=== PATIENT | female | born 1960 | race Hispanic/Latino ===

== ENCOUNTER 2017-04-01 13:38 | Inpatient (IN) | payer OTHER ==
[~2017-04-01] VITALS: Ht 152.4 cm; Wt 79.3 kg
[2017-04-01] VITALS (15 sets, daily range): BP systolic 111–177; BP diastolic 68–90; PULSE 76–99; RESP 16–22; O2SAT 93–98
[~2017-04-01 13:38] MED LIST: ALBU6.7H INH; AMLO10TA3 PO; DICY20TA33 PO; FLUT16SP NS; GLBR5T PO; HYDR25TA4 PO; INSU100I13 SUBQ; LOSA100T29 PO; METF-496 PO; MULT1CAP33 PO
[2017-04-01] MEDS ORDERED: Propofol 10,000 mCg/mL 20 mL Inj ONE (14:49)
[2017-04-01] MEDS ORDERED: Ondansetron 2 mg/mL 2 mL Inj ONE (14:49)
[2017-04-01] MEDS ORDERED: fentaNYL-PF 50 mCg/mL 2 mL Inj ONE ×3 (14:49→21:20)
[2017-04-01] MEDS ORDERED: Ketamine 10 mg/mL 20 mL Inj ONE (14:49)
[2017-04-01] MEDS ORDERED: BENZ200C44 PO (14:57)
[2017-04-01] MEDS ORDERED: ESOM40CA41 PO (14:57)
[2017-04-01] MEDS ORDERED: ALBU8.5H2 INHALATION (14:57)
[2017-04-01] MEDS ORDERED: DOCU250C2 PO (14:57)
[2017-04-01] MEDS ORDERED: DESO15OI TOP (14:57)
[2017-04-01] MEDS ORDERED: ASPI-973 PO (14:57)
[2017-04-01] MEDS ORDERED: POLY17PO6 PO (14:57)
[2017-04-01] MEDS ORDERED: Lactated Ringer's 1,000 ML IV ONE ×2 (16:23→17:49)
[2017-04-01] MEDS ORDERED: MetoCLOpramide 5 mg/mL 2 mL Inj IVPUSH PRN ×2 (17:10→20:25)
--- NOTE | 2017-04-01 17:49 | PCM.HPANE ---
Patient Data Surgeon Admitting Provider:Brandyn Hodge MD Attending Provider:Brandyn Hodge MD Primary Care Physician:Ann Chen MD Other Provider:Padmini Wilcox Anesthesia Reason for Visit Incarcerated Hernia Ht/WT & BMI Height (Feet): 5 Weight (Kilograms): 74.400 Body Mass Index 32.20 Allergies Coded Allergies: No Known Drug Allergies (Verified Allergy, Unknown, 04/01/17) Past Anesthesia History Anesthesia History: Denies:: Abnormal Airway, Anesthesia Reactions, Difficult Intubation, Fam Anesthesia Reaction, Fam Malignant Hypertherm, Malignant Hyperthermia Diabetes History Hx Diabetes?: Yes Type of Diabetes: Type I Glycemic Control: Insulin Dependent Current Bedside Blood Glucose: 171 MRSA MRSA: No Medications Blood Thinner: Aspirin Hypertension Medication: Yes Home Meds Incl Beta Arlin: No Reported Medications Esomeprazole Magnesium (Nexium)40 Mg Capsule.dr40 Mg PO DAILY Ref 0 04/01/17 Polyethylene Glycol 3350 (Miralax)17 Gm Powd.pack17 Gm PO DAILY 04/01/17 Docusate Sodium 250 Mg Kwdotts538 Mg PO BID PRN For Constipation Ref 0 04/01/17 Desonide (Desonide Ointment)N Oint...g.1 Applic TOP BID #1 TUBE Ref 0 04/01/17 Benzonatate 200 Mg Khvwyls685 Mg PO TID PRN For Cough #20 04/01/17 Aspirin 81 Mg Ggyyrk125 Mg PO DAILY Ref 0 04/01/17 Albuterol HFA (Proair HFA)8.5 Gm Hfa.aer.ad2 Puffs INHALATION Q4-6HR PRN For Shortness of Breath #1 INHALER 04/01/17 Metformin ER 1,000 Mg Tablet1,000 Mg PO BIDWM Ref 0 07/24/16 Hydrochlorothiazide 25 Mg Sjoxxg85 Mg PO DAILY 30 Days Ref 0 07/24/16 Fluticasone Propionate (Fluticasone Propionate Nasal)16 Gm [place].susp2 [place] NS BID #16 GM Ref 0 07/24/16 Multivitamin (Multivitamins)1 Each Capsule1 Each PO DAILY 07/24/16 Insulin Glargine (Lantus U100 Solostar Insulin Pen)100 Unit/1 Ml Insuln.pen20 Unit SUBQ HS #1 PENINJ Ref 0 07/24/16 Glyburide 5 Mg Tab5 Mg PO BID 30 Days Ref 0 07/24/16 Losartan Potassium 100 Mg Frvttn409 Mg PO DAILY 07/24/16 Amlodipine 10 Mg Ekpqlv45 Mg PO DAILY #30 03/20/16 Discontinued Reported Medications Albuterol Sulfate (Proventil HFA Inhaler)6.7 Gm Hfa.aer.ad2 Puff INH Q4 #1 INHALER Ref 0 07/24/16 Discontinued Scripts Dicyclomine (Bentyl)20 Mg Nmvoim05 Mg PO QID #20 TABLET Prov:Dwayne Delgado MD 03/28/16 History History of ENT Problems?: No HEENT History: Denies:: Abnormal Airway Difficult Intubation Dysphagia Hearing Problem Denture Type: None Teeth Condition: Within Normal Limits Hx of Heart Problems?: Yes Cardiovascular History: Positive for:: Edema Hypertension Denies:: AICD Atrial Fibrillation Chest Pain Congestive Heart Failure Pacemaker Valvular Heart Disease Hx of Respiratory Problem?: Yes Respiratory History: Positive for:: Asthma (mild) Dyspnea (exercise induced ) Denies:: COPD Cough Hemoptysis Pneumonia Tuberculosis Hx Neurologic Problems?: No Neurological History: Denies:: CVA Dementia Hx of GI Problems?: Yes Hx of Problems?: No Genitourinary History: Denies:: Kidney Stones Female Hx: Denies:: Currently Hx Musculoskeletal Problems?: No Musculoskeletal History: Denies:: Joint Replacement Hx of Psycho/Social Problems?: No Psycho Social History: Positive for:: Anxiety (AT TIMES) Denies:: Hx Depression Hx Surgeries?: Yes (BOWEL RESECTION 04/2012) Hx Any Other Health Problems?: No Other History: Positive for:: Hospitalization (Diverticulitis ) Denies:: Cancer Thyroid Disease History Blood Transfusions: Positive for:: Accept Blood Products? Denies:: Blood Transfuse Reaction Blood Transfusions Hx Diabetes: YesBedside Blood Glucose: 171 Hx Alcohol Use: Yes ("Occasionally")Hx Substance Use: No Smoking Status: Never Smoker Have You Smoked inLast 12 mo: No Stop/Bang Treated for Sleep Apnea?: No Do You Have a CPAP Machine?: No S-Snoring: Do You Snore Loudly: No T-Tired: feel tired, fatigued: No O-Obsered: Observed not breath: No P-Blood Pressure: treated: Yes B- Body Mass Index > 35 kg/m2: No A- Age over 50: Yes N- Neck Large Circumference: No G- Gender Male: No GET Total Score: 1 GET Risk Assessment: Low Risk, <3 Yes Risk Assessment Category Category 1A: Patient has history of documented sleep apnea, and HAS NOT received any narcotic, sedative or anesthesia administration during this stay. Category 1B: Patient has history of documented sleep apnea, and HAS received any narcotic , sedative or anesthesia administration during this stay Category 2: Patient has SUSPECTED Obstructive Sleep Apnea, and HAS received any narcotic , sedative or anesthesia administration during this stay. Category 3: Patient has SUSPECTED Obstructive Sleep Apnea and HAS NOT received narcotic, sedative or anesthesia administration during this stay. Category 4: Outpatient in Procedural Areas with known sleep apnea or who screen positive for High Risk via the STOP/BANG questionnaire. Exam Exam Vital Signs Vital Signs Date Time Temp Pulse Resp B/P Pulse Ox O2 Delivery O2 Flow Rate FiO2 04/01/17 15:57 36.7 99 20 119/82 98 Room Air General Appearance: Alert, Oriented X3, Cooperative HEENT/AIRWAY: MP 2 Lungs: Clear to Auscultation, Normal Air Movement Heart: Exam Unremarkable, Regular Rate/Rhythm, No Murmurs/Rubs/Gallops Meds/Labs/Diagnostics Bedside Blood Glucose: 171 Plan Impression Patient chart reviewed, patient interviewed and anesthestic plan with risks, benefits, and alternatives discussed, and informed consent obtained. ASA Physical Status: ASA2 Mod Systemic Disease Anesthetic Plan: GA Bene/Risks/Altern/Consents: Yes HP Complete Prior to Induction: Yes Willi Umaña MD April 01, 2017 17:49
[2017-04-01] MEDS: HYDROmorphone 1 mg/mL Inj IVPUSH PRN ×8 (17:53→22:51)
[2017-04-01] MEDS ORDERED: Bupivacaine Liposome 1.3% 20 mL Inj ONE (19:27)
[2017-04-01] MEDS ORDERED: Acetaminophen IV 1,000 MG in IV Premix 1 EACH IV PRN (20:05)
[2017-04-01] MEDS ORDERED: Glucose 40% Oral Gel 15 Gm Tube PO PRN (20:05)
[2017-04-01] MEDS ORDERED: Albuterol HFA 60 Puff 8 Gm Inhaler INHALATION PRN (20:10)
--- NOTE | 2017-04-01 20:17 | PCM.SURGOP ---
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 She has had a known incisional hernia for some time, and then presented to urgent care today with acute onset of severe pain in the superior incisional hernia, associated with nausea and vomiting. She had a CT scan of the abdomen and pelvis which showed multiple incisional hernias, but the superior hernia had a portion of the transverse colon with some fat stranding and fluid in the hernia sac, consistent with acute incarceration. After discussion of risks and benefits, she agreed to proceed with laparotomy with repair of incarcerated incisional hernia. Findings: She had 2 primary incisional hernias, as described on the CT scan. The inferior hernia had a portion of small bowel, not incarcerated. The superior hernia was an incarcerated Chery's hernia involving a portion of the transverse colon. She had dense scar tissue, and multiple adhesions of small bowel loops to the anterior abdominal wall. Procedure Details After smooth induction of general endotracheal anesthesia, she was placed in the supine position with both arms out, and was prepped and draped in wide sterile fashion. A procedural pause was performed according to the SCOAP checklist, and all were found to be in agreement. Her previous midline laparotomy was opened from the superior portion down to the umbilicus. Dissection was carried down through the subcutaneous tissue with electrocautery, in between the known hernias. The abdomen was entered at the level of the umbilicus by entering the hernia sac after the umbilical hernia was reduced. The abdomen was entered safely without making an enterotomy. There were multiple dense adhesions of small bowel loops to the anterior abdominal wall, and adhesions were taken down with Metzenbaum scissors. Once this was done, by palpating through the main fascial opening, I was able to enter through the superior fascial defect above the portion of incarcerated transverse colon. Fairly tedious dissection ensued, ultimately enabling me to safely dissect off the transverse colon out of the superior hernia without making an enterotomy. Once this was done, the small fascial bridge was divided inferiorly until there was one fascial defect. Additional adhesio lysis was performed, taking down small bowel adhesions to the anterior abdominal wall until the entire anterior abdominal wall was free. There were some filmy residual intraloop adhesions, which did not look obstructive. The fascia was then skeletonized on both sides. The fascia was closed primarily using a combination of looped 0 PDS suture 2, and #1 Prolene sutures in a [id number]-tcapj. A 19 Georgian round STEFFANY drain was brought out on the left side below the umbilicus, and positioned in the subcutaneous space. Liposomal bupivacaine was instilled into the fascia, and the subcutaneous tissue. The subcutaneous tissue was closed with interrupted 3-0 Vicryl sutures. The skin incision was closed with a running 4-0 Monocryl subcuticular stitch. Steri- Strips, sterile dressings, and an abdominal binder was applied. At the end of the case all needle and sponge counts were correct 2. The patient was awakened from anesthesia without difficulty, and taken to the recovery room in satisfactory condition, having tolerated the procedure well. Complications There were no periprocedural complications identified. Surgical Specimen Removed: No Specimen sent to Pathology: Not applicable Anesthetic Plan: GA Grafts, Implants: None Output, Estimated Blood Loss: 50 Blood Administration during canales: No Drains: STEFFANY Drain #1 Catheters: None copies to: Ann Chen MD, Joshua D MD April 01, 2017 20:17
[2017-04-01] MEDS ORDERED: Lactated Ringer's 500 ML IV PRN (20:23)
[2017-04-01] MEDS ORDERED: Lactated Ringer's 1,000 ML IV SCH (20:23)
[2017-04-01] MEDS ORDERED: EPHEDrine Sulfate 50 mg/mL Inj IVPUSH PRN (20:25)
[2017-04-01] MEDS ORDERED: Ondansetron 2 mg/mL 2 mL Inj IVPUSH PRN (20:25)
[2017-04-01] MEDS ORDERED: Phenylephrine 10,000 mCg/mL Inj IVPUSH PRN (20:25)
[2017-04-01] MEDS ORDERED: Dexamethasone 4 mg/mL Inj IVPUSH PRN (20:25)
[2017-04-01] MEDS ORDERED: Albuterol 2.5 mg/3 mL Inhalation Solution NEB PRN (20:35)
[2017-04-01] MEDS: fentaNYL-PF 50 mCg/mL 2 mL Inj IVPUSH PRN ×4 (20:37→21:29)
[2017-04-01] MEDS: Heparin 5,000 Unit/mL Inj SUBQ SCH (21:00)
[2017-04-01] MEDS ORDERED: Albuterol HFA 200 Puff Inhaler (Vent Pts Only) ONE (21:54)
[2017-04-01] MEDS ORDERED: Insulin LISPRO 300 Unit/3 mL Inj SUBQ SCH (22:00)
[2017-04-01] MEDS: Ondansetron 2 mg/mL 2 mL Inj IVPUSH PRN (22:17)
[2017-04-01] MEDS: HYDROmorphone PCA 0.2 mg/mL 30 mL Inj IV PRN (22:30)
[2017-04-01] MEDS: Dextrose 5% Lactated Ringer's 1,000 ML IV SCH (23:00)
--- NOTE | 2017-04-01 23:08 | HP ---
[address] [address] HISTORY AND PHYSICAL PATIENT: CHRISTA LEAVITT : 1960 MR#: [id number] ADMIT: 04/01/2017 JOB ID: [id number] CHIEF COMPLAINT: Abdominal pain. HISTORY OF PRESENT ILLNESS: The patient is a 57-year-old woman with a personal history of sigmoid colon resection for diverticulitis who has had a known ventral incisional hernia for some time. She presented to urgent care today with fairly acute exacerbation of abdominal pain located at the superior aspect of her upper midline incision. The pain began yesterday. The pain was severe, 8/10, aching, and diffuse. It was radiating to her back. She also had nausea, several episodes of vomiting, alternating diarrhea and constipation. In urgent care, she had a tender hernia in the epigastrium and a reducible hernia at the umbilicus. She had a CT scan of the abdomen and pelvis which showed that the more superior hernia had a moderate amount of inflammation with some reactive free fluid, and changed caliber of the loop of bowel entering and exiting the hernia. The lower periumbilical hernia was described as being unremarkable, although had a loop of small bowel in it as well. White blood cell count was normal at 7.6, hematocrit 41.3. Glucose was 279. She is a diabetic. Her last hemoglobin A1c in December was 11.6. PAST MEDICAL HISTORY: Hypertension, poorly controlled type 2 diabetes mellitus, hyperlipidemia, gastroesophageal reflux disease, asthma, hypermetropia, yeast vaginitis. SURGICAL HISTORY: Sigmoid colon resection in 2011. MEDICATIONS: At home include: 1. Albuterol. 2. Amlodipine. 3. Aspirin 81 mg. 4. Benzonatate. 5. Cozaar. 6. Desonide. 7. Diflucan. 8. Docusate. 9. Fluticasone. 10. Glyburide. 11. Hydrochlorothiazide. 12. Lantus. 13. Losartan. 14. Metformin. 15. MiraLAX. 16. Multivitamin. 17. Nexium. 18. ProAir. ALLERGIES: No known drug allergies. SOCIAL HISTORY: She is a nonsmoker. Denies alcohol and illicit drug use. FAMILY HISTORY: Extensive family history of sigmoid diverticulitis, otherwise negative. REVIEW OF SYSTEMS: A 10-point review of systems is negative for blood in the stool, unplanned weight loss. PHYSICAL EXAMINATION: Body mass index 32.0, temperature 36.7, pulse 99, blood pressure 119/82, saturation 98% on room air. General: She is resting in bed in no acute distress. HEENT: Sclerae anicteric. Mucous membranes are moist. Neck: No lymphadenopathy. Chest: Clear to auscultation bilaterally. Heart: Regular rate and rhythm. No murmurs. Abdomen: Obese, but soft. She is moderately tender in the epigastrium with a firm subcutaneous mass. She has a reducible umbilical hernia. No other masses are appreciated. There is no erythema of the abdominal wall. Extremities: No edema. Neuro: No deficits. Psychiatric: Affect is appropriate. LABORATORIES: As described in the history of present illness. IMAGING: As described in history of present illness. ASSESSMENT AND PLAN: A 57-year-old woman with multiple ventral incisional hernias, with the superior hernia being incarcerated and potentially causing bowel obstruction. Because of the possibility of underlying strangulated hernia, I recommend going to surgery today for a laparotomy with incisional hernia repair. She understands that this may require a bowel resection. Risks of surgery were discussed, including, but not limited to, bleeding, infection, injury to other structures, hernia recurrence. All her questions were answered and informed consent was obtained.
[2017-04-02] VITALS (11 sets, daily range): BP systolic 105–131; BP diastolic 67–81; PULSE 76–87; RESP 14–20; O2SAT 95–99
[2017-04-02] MEDS ORDERED: Insulin LISPRO 300 Unit/3 mL Inj SUBQ ONE (04:10)
[2017-04-02 05:52] LABS: BASOPHILS % (AUTO) 0.2 % (0-3); EOSINOPHILS % (AUTO) 0.1 % (0-5); MONOCYTES % (AUTO) 5.1 % (4-12); Mean Corpuscular Hemoglobin 30.3 pg (27.0-35.0); Mean Corpuscular Volume 87.3 fL (81-100); Platelet Count 137 bil/L (150-400)
[2017-04-02] MEDS: Heparin 5,000 Unit/mL Inj SUBQ SCH ×3 (06:39→21:29)
[2017-04-02] MEDS: Pantoprazole 40 mg ER24 Tablet PO SCH (06:39)
--- NOTE | 2017-04-02 08:17 | PCM.ANEP1 ---
Post Anesthesia Phase 1 PACU Phase 1 Assessment Date of Service: April 01, 2017 Vital Signs Vital Signs Date Time Temp Pulse Resp B/P Pulse Ox O2 Delivery O2 Flow Rate FiO2 04/02/17 05:38 18 96 04/02/17 04:56 14 98 04/02/17 04:25 36.7 80 20 128/74 99 Nasal Cannula 2.00 04/02/17 03:33 Supplement Oxygen 04/02/17 01:19 36.3 81 18 129/76 97 Nasal Cannula 2.00 04/02/17 00:30 18 97 Anesthetic Administered: GA Level of Alertness: Awake, talking Pain: Yes Pain Scale Score: 6 Nausea or Vomiting: No Cardiovascular Function and Hy: Yes Airway Device: Nasal Airway Lungs: Clear to Auscultation, Normal Air Movement Dermatome Level: Full Sensation Complications: No Follow up Care: No Patient Instructions Provided: Yes Willi Umaña MD April 02, 2017 08:17
[2017-04-02] MEDS: Polyethylene Glycol (PEG) 17 Gm Powder PO SCH (08:24)
--- NOTE | 2017-04-02 08:38 | PROG NOTE ---
[address] [address] PROGRESS NOTE PATIENT: CHRISTA LEAVITT : 1960 MR#: [id number] ADMIT: 04/01/2017 JOB ID: [id number] DATE: 04/02/2017 SUBJECTIVE: The patient is seen in followup. She complains of a fair amount of incisional pain this morning. She is not having any nausea. She is urinating without difficulty. OBJECTIVE: Temperature 36.7, pulse 80, blood pressure 128/74, saturation 99% on 2 liters. General: She is sitting up in bed, in no acute distress. Chest is clear. Heart: Regular rate and rhythm. No murmurs. Abdomen is mildly distended, soft. Her incision is intact. STEFFANY drain has bloody output, 15 cc overnight. LABORATORIES: White blood cell count 11.9, hematocrit 37.2, platelets 137. Creatinine 0.58, glucose 342. Albumin 4.3. ASSESSMENT AND PLAN: A 57-year-old woman with poorly controlled diabetes, morbid obesity, postoperative day one status post repair of incarcerated incisional hernia containing colon and small bowel, with lysis of adhesions. She is doing reasonably well. She will stay on a clear liquid diet for today. She has uncontrolled hyperglycemia. We will convert to an insulin infusion today until blood sugars are below 180 for several checks.
[2017-04-02] MEDS: HYDROmorphone PCA 0.2 mg/mL 30 mL Inj IV PRN ×2 (08:41→22:09)
[2017-04-02] MEDS: Dextrose 5% Lactated Ringer's 1,000 ML IV SCH ×3 (08:44→23:06)
[2017-04-02] MEDS: Ondansetron 2 mg/mL 2 mL Inj IVPUSH PRN (09:36)
[2017-04-02] MEDS: Fluticasone 0.05% 15 Spray/2 Gm 16 Gm Nasal Spray NASAL SCH ×2 (11:34→21:30)
[2017-04-02] MEDS: Insulin Human REGular Inj 100 UNIT in 0.9% Sodium Chloride-Pha MIX 100 ML IV SCH (18:51)
[2017-04-03] VITALS (8 sets, daily range): BP systolic 128–163; BP diastolic 62–92; PULSE 66–96; RESP 16–20; O2SAT 92–98
[2017-04-03] MEDS: Dextrose 5% Lactated Ringer's 1,000 ML IV SCH ×2 (04:38→15:13)
[2017-04-03] MEDS: Pantoprazole 40 mg ER24 Tablet PO SCH (05:37)
[2017-04-03] MEDS: Heparin 5,000 Unit/mL Inj SUBQ SCH ×3 (05:37→21:45)
[2017-04-03] MEDS: Ondansetron 2 mg/mL 2 mL Inj IVPUSH PRN (06:09)
[2017-04-03] MEDS ORDERED: Acetaminophen IV 1,000 MG in IV Premix 1 EACH IV PRN (08:10)
--- NOTE | 2017-04-03 08:21 | PROG NOTE ---
[address] [address] PROGRESS NOTE PATIENT: CHRISTA LEAVITT : 1960 MR#: [id number] ADMIT: 04/01/2017 JOB ID: [id number] DATE: 04/03/2017 SUBJECTIVE: The patient is seen in followup. She continues to have some nausea. She has not had any bowel function yet. She has not vomited. She has a fair amount of pain and is a little bit afraid to cough or walk beyond just to the bathroom. OBJECTIVE: Temperature 36.6, pulse 95, blood pressure 153/82, saturation 96% on 2 liters. General: She is resting in bed in no acute distress. Chest is clear. Heart: Regular rate and rhythm. No murmurs. Abdomen is mildly distended. Her incision is clean with no erythema. The STEFFANY drain has serosanguineous drainage, 20 cc overnight. Bowel tones are not appreciated. LABORATORIES: Hemoglobin A1c from yesterday is 11.3. ASSESSMENT AND PLAN: A 57-year-old woman with acutely incarcerated incisional hernia containing transverse colon and small bowel, status post exploratory laparotomy with lysis of adhesions, primary fascial repair. Not unexpectedly, she has some degree of postoperative ileus with no appreciable bowel function yet. She is encouraged to go slow with the diet. Ambulation was encouraged. She should minimize narcotics if at all possible. Recommend continuing the insulin infusion for now.
[2017-04-03] MEDS: Polyethylene Glycol (PEG) 17 Gm Powder PO SCH (09:12)
[2017-04-03] MEDS: Insulin Human REGular Inj 100 UNIT in 0.9% Sodium Chloride-Pha MIX 100 ML IV SCH (09:12)
[2017-04-03] MEDS: Fluticasone 0.05% 15 Spray/2 Gm 16 Gm Nasal Spray NASAL SCH ×2 (09:15→21:45)
[2017-04-04] VITALS (7 sets, daily range): BP systolic 131–149; BP diastolic 76–87; PULSE 75–90; RESP 16–20; O2SAT 93–98
[2017-04-04] MEDS: Dextrose 5% Lactated Ringer's 1,000 ML IV SCH ×3 (00:33→21:11)
[2017-04-04] MEDS: Heparin 5,000 Unit/mL Inj SUBQ SCH ×3 (05:34→21:45)
[2017-04-04 05:55] LABS: BASOPHILS % (AUTO) 0.1 % (0-3); EOSINOPHILS % (AUTO) 2.3 % (0-5); MONOCYTES % (AUTO) 10.9 % (4-12); Mean Corpuscular Hemoglobin 30.7 pg (27.0-35.0); Mean Corpuscular Volume 88.3 fL (81-100); NEUTROPHILS % (AUTO) 61.1 % (40-74); Platelet Count 129 bil/L (150-400)
--- NOTE | 2017-04-04 07:32 | PCM.PNSURG ---
Subjective Visit Information: Reason for Visit Incarcerated Hernia Surgery/Surgery Date Post-Op Day # Date of Admission: April 01, 2017 at 13:44 Hospital Day # Subjective: pt feels better today than yesterday, had some nausea yesterday, no emesis, tolerated clears overnight, no flatus yet. Blood sugar in the low 1-teens on insulin drip Objective Objective Awake in bed Abd: obese, abd binder in place, STEFFANY --> serosang, 10 cc overnight Vital Sign- Last 8 Hours Date Time Temp Pulse Resp B/P Pulse Ox O2 Delivery O2 Flow Rate FiO2 04/04/17 05:50 16 95 04/04/17 05:30 37.4 83 20 149/87 95 Nasal Cannula 2.00 04/04/17 02:49 16 95 04/04/17 00:22 37.6 90 18 143/81 98 Nasal Cannula 2.00 Intake and Output- Last 8 Hour 04/04/17 Cumulative From/Thru 07:00 04/01/17 16:00 - 04/04/17 06:00 Intake Total 1344 ml 9763 ml Output Total 1260 ml 5200 ml Balance 84 ml 4563 ml Intake Oral 260 ml 3080 ml IV Total 1084 ml 6683 ml Output Urine Total 1250 ml 5050 ml Drainage Total 10 ml 100 ml Estimated Blood Loss 50 ml # Bowel Movements 0 0 Result Diagram: 04/04/17 0530 04/04/17 0530 Assessment & Plan Impression POD #3 s/p ventral hernia repair DM Pt is feeling better today Problems: Plan Continue PHYSICIAN IN PRIVATE PRACT[facility] and abd binder OOB and ambulate Await bowel function return Blood sugar control via insulin drip Replace K VTE Prophylaxis: Sub-Q Heparin (Unfractionated) Roberto Gutiérrez MD April 04, 2017 07:32
[2017-04-04] MEDS ORDERED: Potassium Chloride 20 mEq SR Tablet PO ONE (07:35)
[2017-04-04] MEDS: Pantoprazole 40 mg ER24 Tablet PO SCH (07:51)
[2017-04-04] MEDS: Fluticasone 0.05% 15 Spray/2 Gm 16 Gm Nasal Spray NASAL SCH ×2 (09:24→19:38)
[2017-04-04] MEDS: Polyethylene Glycol (PEG) 17 Gm Powder PO SCH (09:24)
[2017-04-04] MEDS: HYDROmorphone PCA 0.2 mg/mL 30 mL Inj IV PRN (09:49)
[2017-04-04] MEDS: Insulin Human REGular Inj 100 UNIT in 0.9% Sodium Chloride-Pha MIX 100 ML IV SCH (11:39)
[2017-04-05] MEDS: Heparin 5,000 Unit/mL Inj SUBQ SCH ×3 (05:46→20:20)
[2017-04-05] MEDS: Pantoprazole 40 mg ER24 Tablet PO SCH (05:48)
[2017-04-05 05:50] VITALS: BP 150/83; PULSE 83; RESP 18; O2SAT 97
[2017-04-05] MEDS ORDERED: Potassium Chloride 20 mEq SR Tablet PO ONE (08:00)
--- NOTE | 2017-04-05 08:00 | PCM.PNSURG ---
Subjective Visit Information: Reason for Visit Incarcerated Hernia Surgery/Surgery Date Post-Op Day # Date of Admission: April 01, 2017 at 13:44 Hospital Day # Subjective: blood sugar well controlled on insulin drip, passed flatus, tolerated clears, K still 3.3 this am. Objective Objective Awake in bed Pleasant Abd: incision clean, abd binder on, STEFFANY in place --> serosang Vital Sign- Last 8 Hours Date Time Temp Pulse Resp B/P Pulse Ox O2 Delivery O2 Flow Rate FiO2 04/05/17 05:50 37.2 83 18 150/83 97 Nasal Cannula 2.00 Intake and Output- Last 8 Hour 04/05/17 Cumulative From/Thru 07:00 04/01/17 16:00 - 04/05/17 07:00 Intake Total 1637 ml 59852 ml Output Total 2455 ml 9315 ml Balance -818 ml 5631 ml Intake Oral 600 ml 5900 ml IV Total 1037 ml 9046 ml Output Urine Total 2450 ml 9150 ml Drainage Total 5 ml 115 ml Estimated Blood Loss 50 ml # Bowel Movements 0 0 Result Diagram: 04/04/17 0530 04/05/17 0545 Assessment & Plan Impression POD #4 s/p ventral hernia repair DM Problems: Plan Replace K Will add oxycodone for pain control 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
[2017-04-05] MEDS: Dextrose 5% Lactated Ringer's 1,000 ML IV SCH ×2 (08:02→17:48)
[2017-04-05 08:03] VITALS: O2SAT 96
[2017-04-05] MEDS: Polyethylene Glycol (PEG) 17 Gm Powder PO SCH (09:03)
[2017-04-05] MEDS: Fluticasone 0.05% 15 Spray/2 Gm 16 Gm Nasal Spray NASAL SCH ×2 (09:05→20:21)
[2017-04-05 10:05] VITALS: BP 153/87; PULSE 79; RESP 18; O2SAT 94
[2017-04-05] MEDS ORDERED: Glucose 40% Oral Gel 15 Gm Tube PO PRN (12:10)
[2017-04-05] MEDS: Insulin LISPRO 300 Unit/3 mL Inj SUBQ SCH ×3 (12:35→22:29)
[2017-04-05 12:47] VITALS: BP 134/85; PULSE 83; RESP 18; O2SAT 95
[2017-04-05 16:31] VITALS: BP 134/88; PULSE 79; RESP 18; O2SAT 97
[2017-04-05 20:35] VITALS: BP 162/78; PULSE 80; RESP 16; O2SAT 98
[2017-04-06] MEDS: Pantoprazole 40 mg ER24 Tablet PO SCH (05:13)
[2017-04-06] MEDS: Heparin 5,000 Unit/mL Inj SUBQ SCH ×3 (05:14→20:47)
[2017-04-06 05:15] VITALS: BP 148/89; PULSE 77; RESP 16; O2SAT 94
--- NOTE | 2017-04-06 08:13 | PCM.PNSURG ---
Subjective Visit Information: Reason for Visit Incarcerated Hernia Surgery/Surgery Date Post-Op Day #5 Date of Admission: April 01, 2017 at 13:44 Hospital Day # Subjective: Tolerating a full liquid diet with no nausea or vomiting. Passing flatus but has not had a bowel movement. 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 Ambulatory in the hallway without assistance. Postop General: No Complaints Gastrointestinal: Good Appetite, Tolerating Oral Feedings, No N/V, Passing Flatus Pain Management: PO Postop Activity: Ambulating Independently Objective Vital Sign- Last 8 Hours Date Time Temp Pulse Resp B/P Pulse Ox O2 Delivery O2 Flow Rate FiO2 04/06/17 05:15 37.2 77 16 148/89 94 Room Air Intake and Output- Last 8 Hour 04/06/17 Cumulative From/Thru 07:00 04/01/17 16:00 - 04/06/17 06:51 Intake Total 680 ml 08271 ml Output Total 2800 ml 71491 ml Balance -2120 ml 3750 ml Intake Oral 680 ml 7860 ml IV Total 31703 ml Output Urine Total 2800 ml 33490 ml Drainage Total 0 ml 118 ml Estimated Blood Loss 50 ml # Bowel Movements 0 0 General: Alert, Cooperative, No Acute Distress Lungs: Clear to Auscultation Heart: Regular Rate/Rhythm Abdomen: Soft, Appropriately tender, Non-distended SURGICAL WOUND : Wound General Appearence: Steri Strips, Sutures, Intact, Well Approximated, No Erythema, No Discharge Wound Drainage Type: STEFFANY Drain #1 (scant serosanguineous drainage) Extremities: Thigh&Calf Soft/Nontender Neuro: Normal Speech Catheters: None (voiding without difficulty) Result Diagram: 04/04/17 0530 04/06/17 0538 Assessment & Plan Impression Primary diagnoses: 1. Incarcerated ventral hernia with bowel obstruction. POD #5 following ventral hernia repair with mesh. Bowel function returning. 2. Type II diabetes mellitus. Fingerstick blood glucoses continued to rise since insulin infusion was stopped yesterday, on low-dose sliding scale insulin protocol. Other chronic conditions: 1. Hypertension 2. Hyperlipidemia 3. GERD 4. Asthma Problems: Plan 1. Regular diabetic diet 2. Increase to high dose sliding scale insulin protocol 3. MiraLAX 4. Ducolax suppository this morning 5. Hep-Lock IV Pain Management: Oral analgesic VTE Prophylaxis: Sub-Q Heparin (Unfractionated), SCDs Resuscitation Status: CPR: Attempt Resuscitation Jamal Valdovinos PA-C April 06, 2017 08:13
[2017-04-06 10:58] VITALS: BP 134/76; PULSE 75
[2017-04-06] MEDS: Polyethylene Glycol (PEG) 17 Gm Powder PO SCH (10:59)
[2017-04-06] MEDS: Fluticasone 0.05% 15 Spray/2 Gm 16 Gm Nasal Spray NASAL SCH ×2 (11:00→19:45)
[2017-04-06] MEDS: Insulin Human REGular 300 Unit/3 mL Inj SUBQ SCH ×3 (11:00→20:47)
[2017-04-06 13:02] VITALS: BP 141/77; PULSE 74; RESP 16; O2SAT 95
[2017-04-06 20:54] VITALS: BP 147/80; PULSE 78; RESP 20; O2SAT 94
[2017-04-07] MEDS: Insulin Human REGular 300 Unit/3 mL Inj SUBQ SCH ×2 (02:46→08:14)
[2017-04-07 05:10] VITALS: BP 143/82; PULSE 74; RESP 18; O2SAT 93
[2017-04-07] MEDS: Heparin 5,000 Unit/mL Inj SUBQ SCH (05:36)
--- NOTE | 2017-04-07 06:51 | PCM.DISURG ---
Surgical Discharge Instruction Date of Service April 07, 2017 Dates of Hospitalization Date of Hospital Admission April 01, 2017 at 13:44 Providers Admitting Physician: Brandyn Hodge MD Primary Care Physician: Ann Chen MD Attending Physician: Brandyn Hodge MD Discharge Diagnosis Discharge Diagnosis incarcerated incisional hernia Post Operative diagnosis Same Diet Discharge Diet: Diabetic Activity Discharge Activity-General: No lifting >10 pounds for 4-6 weeks Dressing and Incisional Care Dressing Care: Allow Steri Stripes to fall off Hygiene: March shower Follow Up Plan Follow Up Plan with Dr. Hodge in surgery clinic in 2 weeks Call your provider for: Fever (over 101.5F), Vomiting, Discharge @ incision, pus discharge Brandyn Hodge MD April 07, 2017 06:51
[2017-04-07] MEDS ORDERED: OXYC5TAB72 PO (06:52)
[2017-04-07] MEDS ORDERED: metFORMIN ER 500 mg ER24 Tablet PO SCH (08:00)
[2017-04-07] MEDS ORDERED: METFORMIN 1000 MG PO SCH (08:00)
[2017-04-07] MEDS: Fluticasone 0.05% 15 Spray/2 Gm 16 Gm Nasal Spray NASAL SCH (08:12)
[2017-04-07] MEDS: Polyethylene Glycol (PEG) 17 Gm Powder PO SCH (08:12)
[2017-04-07 08:13] VITALS: BP 150/84; PULSE 73
[2017-04-07] MEDS: Pantoprazole 40 mg ER24 Tablet PO SCH (08:14)
[2017-04-07] MEDS ORDERED: GLYBURIDE 5 MG PO SCH (08:30)
--- NOTE | 2017-04-07 09:40 | PROG NOTE ---
[address] [address] PROGRESS NOTE PATIENT: CHRISTA LEAVITT : 1960 MR#: [id number] ADMIT: 04/01/2017 JOB ID: [id number] DATE: 04/07/2017 SUBJECTIVE: The patient is seen in followup. She feels good and is hopeful that she can go home today. She had a bowel movement yesterday. Her pain is well controlled with oxycodone. OBJECTIVE: Temperature 36.8, pulse 73, blood pressure 150/84, saturation 93% on room air. General: She is sitting up, in no acute distress. Chest is clear. Heart: Regular rate and rhythm. No murmurs. Abdomen is soft, nondistended. Her midline wound is well approximated. Her STEFFANY drain has scant serosanguineous drainage. STEFFANY drain was removed, and a sterile dressing applied. ASSESSMENT AND PLAN: A 57-year-old woman, status post repair of an acutely incarcerated multi-fenestrated ventral hernia containing colon and small bowel. She is doing well clinically. She will be discharged to home today. She will follow up in surgery clinic in two weeks. She was advised to avoid lifting anything over 15 pounds, excessive bending or twisting at work. She is planning to go back to work at [employer] after this week.
--- NOTE | 2017-04-07 15:55 | PCM.DC.SUR ---
Discharge Summary Date of Service: Date of Hospital Admission: April 01, 2017 at 13:44 Date of Operation(s): 04/01/2017 Date of Discharge: 04/07/2017 Diagnosis at Time of Discharge Primary diagnoses: 1. Incarcerated ventral hernia with bowel obstruction. 2. Type II diabetes mellitus, hemoglobin A1c 11.3 3. Morbid obesity, BMI 34.1 Other chronic conditions: 1. Hypertension 2. Hyperlipidemia 3. GERD 4. Asthma Problems: Operation 1. Exploratory laparotomy 2. Lysis of adhesions 3. Primary tissue repair of incarcerated ventral incisional hernia Brief History and Physical: The patient is a 57-year-old woman who had a personal history of a sigmoid colon resection for diverticulitis. She had a known incisional hernia for some time, and then presented to urgent care with acute onset of severe pain in the superior incisional hernia, associated with nausea and vomiting. She had a CT scan of the abdomen and pelvis which showed multiple incisional hernias, but the superior hernia had a portion of the transverse colon with some fat stranding and fluid in the hernia sac, consistent with acute incarceration. Consultants: None Hospital Course: The patient was admitted and underwent the above-mentioned operation without complication. She experienced nausea and equivocal pain control for her first 2 postsurgical days. Liquid diet was initiated and advanced without incident. Garcia catheter was able to be removed on the second postsurgical day. Following this diet was advanced, she was transitioned to oral analgesic and was stable for discharge on her sixth postsurgical day. She experienced hyperglycemia through her entire postsurgical phase requiring insulin infusion followed by sliding scale insulin protocol. She was hyperglycemic at discharge. At the time of discharge the patient was tolerating an oral diet with no nausea or vomiting, her bowels are working, she was tolerating pain on oral analgesic, her wounds were dry and intact, and she was ambulating without assistance. Pathology: None Disposition: The patient was discharged to home on her sixth postsurgical day. Follow-up Plan: She will follow-up in the office with Dr. Hodge in 2 weeks. Albuterol HFA (Proair HFA) 8.5 Gm Hfa.aer.ad 2 PUFFS INHALATION Q4-6HR PRN PRN For Shortness of Breath (Reported) Amlodipine (Amlodipine) 10 Mg Tablet 10 MG PO DAILY (Reported) Aspirin (Aspirin) 81 Mg Tablet 162 MG PO DAILY (Reported) Benzonatate (Benzonatate) 200 Mg Capsule 200 MG PO TID PRN PRN For Cough ( Reported) Desonide (Desonide Ointment) N Oint...g. 1 APPLIC TOP BID (Reported) Docusate Sodium (Docusate Sodium) 250 Mg Capsule 250 MG PO BID PRN PRN For Constipation (Reported) Esomeprazole Magnesium (Nexium) 40 Mg Capsule.dr 40 MG PO DAILY (Reported) Fluticasone Propionate (Fluticasone Propionate Nasal) 16 Gm [place].susp 2 SPRAY NS BID (Reported) Glyburide (Glyburide) 5 Mg Tab 5 MG PO BID (Reported) Hydrochlorothiazide (Hydrochlorothiazide) 25 Mg Tablet 25 MG PO DAILY (Reported ) Insulin Glargine (Lantus U100 Solostar Insulin Pen) 100 Unit/1 Ml Insuln.pen 20 UNIT SUBQ HS (Reported) Losartan Potassium (Losartan Potassium) 100 Mg Tablet 100 MG PO DAILY (Reported ) Metformin ER (Metformin ER) 1,000 Mg Tablet 1,000 MG PO BIDWM (Reported) Multivitamin (Multivitamins) 1 Each Capsule 1 EACH PO DAILY (Reported) Polyethylene Glycol 3350 (Miralax) 17 Gm Powd.pack 17 GM PO DAILY (Reported) oxyCODONE (oxyCODONE) 5 Mg Tablet 5-10 MG PO Q4H PRN PRN For Moderate Pain copies to: Ann Chen MD, Fred H PA-C April 07, 2017 15:55
[2017-04-07] MEDS ORDERED: Insulin GLARgine 100 Unit/mL Syringe SUBQ SCH (21:00)
[2017-04-07] MEDS ORDERED: INSULIN GLARGINE 20 UNIT SUBQ SCH (21:00)
== END 2017-04-07 11:00 | disposition home or self-care (01) | DRG 336 ==
LOC: OSC 13:44 → OBSVTOIN 13:44
PROVIDERS: ADMIT Student in an Organized Health Care Education/Training Program; ATTEND Student in an Organized Health Care Education/Training Program
PROC: 0DN80ZZ Release Small Intestine, Open Approach (ICD-10-PCS; 2017-04-01)
PROC: 0WQF0ZZ Repair Abdominal Wall, Open Approach (ICD-10-PCS; principal; 2017-04-01 20:15)
DX: K43.0 Incisional hernia with obstruction, without gangrene (principal); K56.5 Intestinal adhesions [bands] with obstruction (postinfection); I10 Essential (primary) hypertension; E11.65 Type 2 diabetes mellitus with hyperglycemia; Z79.4 Long term (current) use of insulin; E78.5 Hyperlipidemia, unspecified; K21.9 Gastro-esophageal reflux disease without esophagitis; J45.909 Unspecified asthma, uncomplicated; Z79.82 Long term (current) use of aspirin; E66.01 Morbid (severe) obesity due to excess calories; Z68.34 Body mass index [BMI] 34.0-34.9, adult